=== PATIENT | female | born 1955 | race Caucasian/White ===

== ENCOUNTER 2020-06-27 08:29 | Outpatient (REF) | payer OTHER, SELFPAY ==
[2020-06-27 09:14] LABS: MANUAL DIFF FLAG NO
[2020-06-27 09:19] LABS: Basophils Percent Auto 0.3 % (0-2); Eosinophils Absolute Auto 0.2 X10*3/uL (0.0-0.4); Eosinophils Percent Auto 2.9 % (0-4); Hematocrit 45.2 % (37-47); Hemoglobin 14.8 g/dl (12.0-16.0); Imm Gran Abs Auto 0.01 X10*3/uL (0.00-0.03); Imm Gran Pct Auto 0.2 % (0.0-0.4); Lymphocytes Absolute Auto 1.1 X10*3/uL (1.2-4.9); Lymphocytes Percent Auto 18.9 % (20-40); Mean Corpuscular HGB Conc 32.7 g/dl (31.0-35.0); Mean Corpuscular Volume 97.6 fL (80-98); Mean Platelet Volume 11.4 fL (9.4-12.3); Monocytes Absolute Auto 0.5 X10*3/uL (0.1-1.2); Monocytes Percent Auto 7.9 % (2-11); Neutrophils Absolute Auto 4.1 X10*3/uL (2.0-8.3); Neutrophils Percent Auto 69.8 % (45-73); Platelet Count 214 X10*3/uL (160-400); Red Blood Count 4.63 X10*6/uL (4.20-5.50); Red Cell Distribution Width 11.8 % (11.0-16.0); White Blood Count 5.8 X10*3/uL (4.8-10.8)
[2020-06-27 09:47] LABS: Alanine Aminotransferase 23 U/L (0-31); Albumin Level 4.2 g/dL (3.5-5.0); Alkaline Phosphatase 94 U/L (39-117); Anion Gap 13 (12-20); Aspartate Amino Transferase 25 U/L (5-31); Bilirubin Total 1.1 mg/dL (0.0-1.0); Blood Urea Nitrogen 13 mg/dL (9-16); Calcium 9.2 mg/dL (8.4-10.2); Carbon Dioxide 32 mmol/L (22-29); Chloride 99 mmol/L (96-108); Cholesterol 177 mg/dL; Estimated Glomerular Filt Rate > 60; Glucose Fasting 101 mg/dL (60-99); HDL Cholesterol 54 mg/dL; LDL Cholesterol Calculated 96 mg/dl; Potassium 4.7 mmol/l (3.3-5.1); Sodium 139 mmol/L (135-145); Total Protein 6.9 g/dL (6.5-8.0); Triglycerides 138 mg/dL
[2020-06-27 13:25] LABS: Free T4 (Free Thyroxine) 1.12 ng/dL (0.71-1.85); Thyroid Stimulating Hormone 1.79 uIU/mL (0.32-4.0)
== END 2020-06-27 08:30 | disposition home or self-care (01) ==
LOC: HO.LAB 08:29
PROVIDERS: PCP Internal Medicine; Visit Provider Internal Medicine
DX: Z00.00 Encounter for general adult medical examination without abnormal findings (principal); E03.9 Hypothyroidism, unspecified
CPT/HCPCS: 36415; 80053; 80061; 84439; 84443; 85025

== ENCOUNTER 2021-01-05 07:53 | Outpatient (REF) | payer MEDICARE, SELFPAY ==
--- NOTE | ~2021-01-05 | MM_ITS ---
EXAMINATION: MM SCREENING DIGITAL BREAST TOMOSYNTHESIS, BILATERAL CLINICAL INFORMATION: Screening. Asymptomatic. The lifetime risk of breast cancer based on the Tyrer-Cuzick Model is 6.9%. COMPARISON: Mammography: October 15, 2018 and studies dating back to October 19, 2012 TECHNIQUE: Digital breast tomosynthesis is performed in both the craniocaudal and mediolateral oblique views along with computer-aided detection (CAD). Synthesized 2D images are generated from the tomosynthesis. FINDINGS: There are scattered areas of fibroglandular density (ACR BI-RADS breast composition Category b). There are no significant masses, abnormal calcifications, or other abnormalities. MM/MM tomosynthesis screening BI IMPRESSION: There are no significant changes from prior study. ASSESSMENT: BI-RADS 1: Negative RECOMMENDATION: Routine annual mammography screening. This patient's information was entered into a reminder system with a target due date for their next mammogram.
== END 2021-01-05 07:54 | disposition home or self-care (01) ==
LOC: HO.MAMMO 07:53
PROVIDERS: PCP Internal Medicine; Visit Provider Internal Medicine
DX: Z12.31 Encounter for screening mammogram for malignant neoplasm of breast (principal)
CPT/HCPCS: 77063; 77067

== ENCOUNTER 2021-12-20 06:36 | Outpatient (REF) | payer MEDICARE, SELFPAY ==
[2021-12-20 07:01] LABS: MANUAL DIFF FLAG NO
[2021-12-20 07:33] LABS: Basophils Percent Auto 0.5 % (0-2); Eosinophils Absolute Auto 0.2 X10*3/uL (0.0-0.4); Eosinophils Percent Auto 3.8 % (0-4); Hematocrit 44.8 % (37.0-47.0); Imm Gran Abs Auto 0.01 X10*3/uL (0.00-0.03); Imm Gran Pct Auto 0.2 % (0.0-0.4); Lymphocytes Absolute Auto 1.4 X10*3/uL (1.2-4.9); Lymphocytes Percent Auto 23.1 % (20-40); Mean Corpuscular HGB Conc 33.5 g/dl (31.0-35.0); Mean Corpuscular Hemoglobin 32.8 pg (27.0-33.0); Mean Corpuscular Volume 97.8 fL (80.0-98.0); Mean Platelet Volume 11.1 fL (9.4-12.3); Monocytes Absolute Auto 0.5 X10*3/uL (0.1-1.2); Monocytes Percent Auto 8.9 % (2-11); Neutrophils Absolute Auto 3.7 x10*3/uL (2.0-8.3); Neutrophils Percent Auto 63.5 % (45-73); Platelet Count 217 X10*3/uL (160-400); Red Blood Count 4.58 X10*6/uL (4.20-5.50); Red Cell Distribution Width 11.3 % (11.0-16.0); White Blood Count 5.9 X10*3/uL (4.8-10.8)
[2021-12-20 08:18] LABS: Alanine Aminotransferase 45 U/L (0-31); Albumin Level 4.2 g/dL (3.5-5.0); Alkaline Phosphatase 81 U/L (39-117); Anion Gap 13 (12-20); Aspartate Amino Transferase 32 U/L (5-31); Bilirubin Total 0.9 mg/dL (0.0-1.0); Blood Urea Nitrogen 14 mg/dL (9-16); Calcium 9.9 mg/dL (8.4-10.2); Carbon Dioxide 31 mmol/L (22-29); Chloride 103 mmol/L (96-108); Cholesterol 167 mg/dL; Estimated Glomerular Filt Rate > 60; Glucose Random 95 mg/dL (60-115); HDL Cholesterol 46 mg/dL; LDL Cholesterol Calculated 83 mg/dl; Sodium 142 mmol/L (135-145); Total Protein 6.9 g/dL (6.5-8.0); Triglycerides 192 mg/dL
[2021-12-20 08:32] LABS: Thyroid Stimulating Hormone 1.35 uIU/mL (0.32-4.0)
== END 2021-12-20 06:37 | disposition home or self-care (01) ==
LOC: HO.LAB 06:36
PROVIDERS: PCP Internal Medicine; Visit Provider Internal Medicine
DX: I10 Essential (primary) hypertension (principal); E03.9 Hypothyroidism, unspecified
CPT/HCPCS: 36415; 80053; 80061; 84439; 84443; 85025

== ENCOUNTER 2022-05-27 09:13 | Day surgery (SDC) | payer MEDICARE, SELFPAY ==
[2022-05-21 15:51] VITALS: BMI 30.4
--- NOTE | 2022-05-23 10:30 | HO.ANESPROP2 ---
Documented by User: Jelena Gold NP 05/23/22 10:31 HPI - Anesthesia Eval Consult details Narrative: 66yo F for Colonoscopy PMFSH Past Medical History Medical History HTN (hypertension) Hypothyroid Surgical History Surgical History H/O colonoscopy History of bunionectomy Hx of cholecystectomy Hx of hysterectomy Social History Social History Household Members: Spouse Patient Tobacco Use Status: Former Tobacco user Quit Date: 25 yrs ago Use of substances other than those prescribed or required for medical reasons: No Are you DNR?: No Advance Directives: No Advance Directives Information Provided: Yes Patient : No Meds Allergies Allergy/AdvReac Type Severity Reaction Status Date / Time codeine [Codeine] Allergy Intermediate HIVES/N/V Verified 05/27/22 09:56 Iodinated Contrast Media Allergy Unknown Unknown Verified 05/27/22 09:56 [IV Contrast Dye] Home Medications Medication Instructions Recorded Confirmed Last Taken Type ibuprofen 200 mg tablet (Advil) 200 mg PO Q8H PRN Pain 05/21/22 05/27/22 05/20/22 History levothyroxine 75 mcg tablet 75 mcg PO DAILY 05/21/22 05/27/22 Unknown History losartan 50 mg tablet 50 mg PO DAILY 05/21/22 05/27/22 Unknown History Exam Exam Date and Time: May 23, 2022 1030 Height,Weight and Vital Signs: Height 5 ft 5 in Weight 83.007 kg Pertinent Lab Results Pertinent Lab Results: Laboratory Tests 12/20/21 12/20/21 06:45 06:45 WBC 5.9 Hgb 15.0 Hct 44.8 Plt Count 217 Sodium 142 Potassium 5.0 Chloride 103 Carbon Dioxide 31 H BUN 14 Creatinine 0.76 Assessment and Plan Assessment Anesthesia Assessment: Chart Reviewed Documented by User: Joyce Gaspar MD 05/27/22 11:34 PMFSH Past Medical History Medical History HTN (hypertension) Hypothyroid Functional capacity: independent ambulation Patient : No Family History Family history of problems with anesthesia: No Surgical History Surgical History H/O colonoscopy History of bunionectomy Hx of cholecystectomy Hx of hysterectomy History of Problems with Anesthesia: No Social History Social History Household Members: Spouse Patient Tobacco Use Status: Former Tobacco user Quit Date: 25 yrs ago Use of substances other than those prescribed or required for medical reasons: No Are you DNR?: No Advance Directives: No Advance Directives Information Provided: Yes Patient : No Meds Allergies Allergy/AdvReac Type Severity Reaction Status Date / Time codeine [Codeine] Allergy Intermediate HIVES/N/V Verified 05/27/22 09:56 Iodinated Contrast Media Allergy Unknown Unknown Verified 05/27/22 09:56 [IV Contrast Dye] Home Medications Medication Instructions Recorded Confirmed Last Taken Type ibuprofen 200 mg tablet (Advil) 200 mg PO Q8H PRN Pain 05/21/22 05/27/22 05/20/22 History levothyroxine 75 mcg tablet 75 mcg PO DAILY 05/21/22 05/27/22 Unknown History losartan 50 mg tablet 50 mg PO DAILY 05/21/22 05/27/22 Unknown History Assessment and Plan Final Anesthetic Review Family History of Problems with Anesthesia: No History of Problems with Anesthesia: No ASA Class: II Final Preanesthetic Review: No Changes in Pt Med Stat, Meds/Allgs Chart Reviewed, Consent Obtained/Reviewed and Anes Risks/Benef Reviewed Patient Risk: Low Procedure Risk: Low Anesthetic Plan Anesthetic Plan: MAC: Disposition: Standard PACU
[2022-05-27 09:56] VITALS: BP 160/93; PULSE 79; RESP 16; TEMP 36.9; O2SAT 96
[2022-05-27] MEDS: Lactated Ringers 1,000 ML 100 ML IVCONT (10:10)
--- NOTE | 2022-05-27 10:57 | MHC.SHP ---
Pre-Procedural Eval Section A Date of Service: 05/27/22 The patient is an INPATIENT: No Changes since office visit: No Cold of Flu in the past 2 weeks, No New Medical Problems, No Changes in Medication and No Patient answered all questions The History & Physical has been completed within 30 days and I have reviewed it.: Yes Section B Chief Complaint: Encounter for screening for malignant neoplasm of Allergies: Allergies Allergy/AdvReac Type Severity Reaction Status Date / Time codeine [Codeine] Allergy Intermediate HIVES/N/V Verified 05/27/22 09:56 Iodinated Contrast Media Allergy Unknown Unknown Verified 05/27/22 09:56 [IV Contrast Dye] Plan I have reviewed the history and physical and performed a pertinent physical examination on my patient. No changes have occurred unless specified.
--- NOTE | 2022-05-27 11:33 | P.BOP_ITS ---
Brief Operative Note Date of Service: 05/27/22 Pre-op diagnosis: screening Post-op diagnosis: same Surgeon: Angel Nunez Anesthesia: MAC Was an Digital Data Analyst used for this Procedure?: No Estimated blood loss (mL): 2 Pathology: other Condition: stable Disposition: PACU
[2022-05-27 11:38] VITALS: BP 139/83; PULSE 60; RESP 16; TEMP 36.8; O2SAT 97
[2022-05-27 11:54] VITALS: BP 153/83; PULSE 65; RESP 18; TEMP 36.8; O2SAT 96
--- NOTE | 2022-05-27 12:07 | HO.POSTANES ---
Post Anesthesia Evaluation Post Anesthesia Evaluation Vital Signs: Vital Signs Temp Pulse Resp BP Pulse Ox O2 Del Method O2 Flow Rate 05/27/22 11:54 98.2 F 65 18 153/83 H 96 Room Air 05/27/22 11:38 98.2 F 60 16 139/83 97 Nasal Cannula 2 05/27/22 09:56 98.4 F 79 16 160/93 H 96 Room Air Anesthesia: Monitored Mental Status: Awake Pain Control: Satisfactory Nausea/Vomiting: None Hydration: Adequate Anesthesia-Related Issues: No Anes. Related Issues
--- NOTE | 2022-05-27 23:40 | OP_ITS ---
SURGEON: Angel Nunez MD INDICATIONS: Colon cancer screening. PREOPERATIVE DIAGNOSIS: POSTOPERATIVE DIAGNOSIS: PROCEDURE PERFORMED: Colonoscopy to the terminal ileum with snare polypectomy. ESTIMATED BLOOD LOSS: COMPLICATIONS: ANESTHESIA: Monitored anesthesia care. ASSISTANTS: SPECIMENS: DESCRIPTION OF PROCEDURE: The procedure was performed on 05/27/2022. History and physical performed. The risks and benefits of the procedure were explained to the patient and informed consent was obtained. The patient was placed in the left lateral decubitus position. A digital rectal exam was performed and was found to be normal. The Olympus pediatric video colonoscope was introduced into the rectum and advanced to the cecum without difficulty. The cecum was identified by transillumination, palpation, and identification of ileocecal valve. Examination was performed. The scope was removed. She tolerated the procedure well and was taken to recovery in stable condition. FINDINGS: The terminal ileum was briefly examined and appeared normal. The visualized colonic mucosa was normal. The quality of the prep was good. Two polyps were identified. Both measured less than 10 mm were removed with the snare and biopsy forceps. These were located at the right colon at about 70 cm. No other polyps were identified. There was some diverticulosis involving the sigmoid. Retroflexed examination showed large internal hemorrhoids. IMPRESSION: Colon polyps. RECOMMENDATION: Follow up the biopsy results. MD CORI Wharton/NIRU / [id number]
== END 2022-05-27 12:43 | disposition home or self-care (01) ==
PROVIDERS: PCP Internal Medicine; Visit Provider Internal Medicine Gastroenterology
PROC: 0DJD8ZZ Inspection of Lower Intestinal Tract, Via Natural or Artificial Opening Endoscopic (ICD-10-PCS; CPT 45378; principal; 2022-05-27 10:30)
DX: Z12.11 Encounter for screening for malignant neoplasm of colon (principal); D12.2 Benign neoplasm of ascending colon; D12.4 Benign neoplasm of descending colon; K57.30 Diverticulosis of large intestine without perforation or abscess without bleeding; K64.8 Other hemorrhoids; I10 Essential (primary) hypertension; E03.9 Hypothyroidism, unspecified; Z79.1 Long term (current) use of non-steroidal anti-inflammatories (NSAID); Z79.899 Other long term (current) drug therapy; Z90.49 Acquired absence of other specified parts of digestive tract; Z87.891 Personal history of nicotine dependence
CPT/HCPCS: 45385; 45380; 88305

== ENCOUNTER 2023-01-21 16:42 | Outpatient (REF) | payer MEDICARE, SELFPAY ==
--- NOTE | ~2023-01-21 | XR_ITS ---
EXAMINATION: XR HIP, RIGHT CLINICAL INFORMATION: Right hip pain COMPARISON: None available. TECHNIQUE: Two views of the right hip. FINDINGS: The bones are intact.. No fracture. Alignment is anatomic. Hip joint space is maintained. Subchondral sclerosis is seen in the superior-lateral aspect of the acetabulum. Small calcification near the greater trochanter could be related to gluteal tendinosis. XR/XR hip RT min 2V IMPRESSION: Mild degenerative change of the right hip.
[2023-01-21 16:53] LABS: MANUAL DIFF FLAG NO
[2023-01-21 17:24] LABS: Basophils Percent Auto 0.4 % (0-2); Eosinophils Absolute Auto 0.2 X10*3/uL (0.0-0.4); Eosinophils Percent Auto 2.2 % (0-4); Hematocrit 45.7 % (37.0-47.0); Hemoglobin 15.1 g/dl (12.0-16.0); Imm Gran Abs Auto 0.03 X10*3/uL (0.00-0.03); Imm Gran Pct Auto 0.3 % (0.0-0.4); Lymphocytes Absolute Auto 1.2 X10*3/uL (1.2-4.9); Mean Corpuscular Hemoglobin 32.5 pg (27.0-33.0); Mean Corpuscular Volume 98.5 fL (80.0-98.0); Mean Platelet Volume 11.1 fL (9.4-12.3); Monocytes Absolute Auto 0.9 X10*3/uL (0.1-1.2); Monocytes Percent Auto 9.6 % (2-11); Neutrophils Absolute Auto 6.9 x10*3/uL (2.0-8.3); Neutrophils Percent Auto 74.5 % (45-73); Platelet Count 235 X10*3/uL (160-400); Red Blood Count 4.64 X10*6/uL (4.20-5.50); Red Cell Distribution Width 11.9 % (11.0-16.0); White Blood Count 9.2 X10*3/uL (4.8-10.8)
[2023-01-21 18:00] LABS: Alanine Aminotransferase 40 U/L (0-31); Albumin Level 4.3 g/dL (3.5-5.0); Alkaline Phosphatase 95 U/L (39-117); Anion Gap 12 (12-20); Aspartate Amino Transferase 26 U/L (5-31); Bilirubin Total 0.9 mg/dL (0.0-1.0); Blood Urea Nitrogen 23 mg/dL (9-16); Calcium 9.4 mg/dL (8.4-10.2); Carbon Dioxide 32 mmol/L (22-29); Chloride 99 mmol/L (96-108); Estimated Glomerular Filt Rate > 60; Glucose Random 91 mg/dL (60-115); Potassium 4.3 mmol/L (3.3-5.1); Sodium 139 mmol/L (135-145); Total Protein 7.2 g/dL (6.5-8.0)
[2023-01-21 18:16] LABS: Free T4 (Free Thyroxine) 1.07 ng/dL (0.71-1.85); Thyroid Stimulating Hormone 1.63 uIU/mL (0.32-4.0)
== END 2023-01-21 16:43 | disposition home or self-care (01) ==
LOC: HO.LAB 16:42
PROVIDERS: PCP Internal Medicine; Visit Provider Internal Medicine
DX: M25.551 Pain in right hip (principal); I10 Essential (primary) hypertension; E03.9 Hypothyroidism, unspecified
CPT/HCPCS: 36415; 73502; 80053; 84439; 84443; 85025

== ENCOUNTER 2023-02-23 09:34 | Outpatient (AMB) | payer MEDICARE, SELFPAY ==
[2023-02-23 10:17] VITALS: BMI 30.8
--- NOTE | 2023-02-23 10:17 | MHC.OFFVIS ---
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 Patient reports that she has had ongoing hip pain for about 2 months now, denies injury. Pain increases with walking and radiates down the leg. History of sciatic flair ups. Tried Advil with no relief, tried prednisone with relief . 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 She complains of pain in the lateral aspect of her hip, which is worse with walking and radiates down her leg. She says she walks with a limp and this caused her LBP. She says her pain has been improving overall, though she continues to have pain at night when lying on her side. She is able to walk normally and denies any pain with stairs. She has a Hx of Sciatica and denies any numbness, tingling, or burning in her leg. She says she has not been able to Golf recently due to her pain. [facility] Medical History HTN (hypertension) Hypothyroid Surgical History H/O colonoscopy History of bunionectomy Hx of cholecystectomy Hx of hysterectomy Social History Household Members: Spouse Patient Tobacco Use Status: Former Tobacco user Quit Date: 25 yrs ago Review of Systems Const All systems reviewed & are unremarkable except as noted in HPI and below Physical Exam Vital Signs: BMI result Body Mass Index 30.8 Const General: no acute distress, alert and awake Orientation/consciousness: patient oriented x3 HEENT Head: Yes normocephalic and Yes atraumatic Eyes EOM: EOMs intact bilaterally Resp Effort & Inspection: normal respiratory effort and able to speak in complete sentences Cardio Jugular venous distension: no JVD Skin General skin exam: turgor normal Rashes: no rashes Neuro General: patient oriented x3 Extrem Other: Right Hip: TTP bursa No groin pain with hip ROM Full ROM Psych Appearance: grossly normal Affect: normal affect Attitude: cooperative Office Procedures Joint Injection/Drain Joint Injection/Drain Details: Injected 1 mL of Decadron and 3 mL 1% lidocaine and 3 mL of 0.25% Marcaine. Site was prepped using aseptic technique. Patient tolerated the procedure well. Primary Site: other (Right greater troch bursa) Coding 22013 - Large joint Procedure code (CPT) selection complete Results Reviewed Results Reviewed: 02/23/23 10:32 BUPivacaine MPF 0.25 % [Sensorcaine-MPF 0.25% 10 ML] 10 ml .ROUTE .STK-MED ONE Lidocaine HCl 2 % MPF [Xylocaine 2 % MPF] 5 ml .ROUTE .STK-MED ONE dexAMETHasone sod phosphate [Decadron] 4 mg .ROUTE .STK-MED ONE I personally reviewed relevant radiographs. Mild degenerative change of the right hip. Assessment & Plan Assessment & Plan (1) Bursitis of right hip: Code(s): M70.71 - Other bursitis of hip, right hip Plan: This is a 67 year old woman with right hip bursitis. She has improving pain with weight-bearing and when lying on her side at night. She feels limited in her ADLs and enjoyable daily activities, such as Golfing. I discussed her diagnosis and treatment options. I recommend she focus on quad, core, and gluteal strengthening and NSAIDs. I injected her right hip bursa today, which she tolerated well. She would like to exercise at home and consider PT, she can contact the clinic for a referral. She will follow-up prn. (2) Lumbar radiculopathy, right: Code(s): M54.16 - Radiculopathy, lumbar region Plan: LBP that radiates down the right leg. Denies numbness and tingling. Plan Scribed for Terrence Tarango MD by Ankit Lomax, medical technologist clinical, on 02/23/23 at 10:30 AM, EST. Coding Level of Care Code New Pt Level 3 (62095) Diagnoses Bursitis of right hip M70.71 Lumbar radiculopathy, right M54.16 CPT Codes Coding - 18217 Large joint: 96052 - Large joint ([id number])
== END 2023-02-23 10:41 | disposition home or self-care (01) ==
LOC: HO.HOS 10:16
PROVIDERS: PCP Internal Medicine; Visit Provider Orthopaedic Surgery
DX: M70.71 Other bursitis of hip, right hip (principal); M54.16 Radiculopathy, lumbar region
CPT/HCPCS: 20610; 99203

== ENCOUNTER → 2023-02-23 10:16 | Outpatient (BNVA) | payer MEDICARE, SELFPAY | PROVIDERS: PCP Internal Medicine; Visit Provider Orthopaedic Surgery | DX: M70.71 Other bursitis of hip, right hip (principal); M54.16 Radiculopathy, lumbar region | CPT/HCPCS: 20610; 99202; J1100 ==

== ENCOUNTER 2023-11-25 15:10 | Outpatient (REF) | payer MEDICARE, SELFPAY ==
--- NOTE | ~2023-11-25 | XR_ITS ---
EXAMINATION: Right shoulder and right humerus x-ray CLINICAL INFORMATION: Fall 2 weeks ago COMPARISON: Right shoulder x-ray September 2018 TECHNIQUE: 4 views of the right shoulder. 2 views of the right humerus FINDINGS: Right shoulder: There is a comminuted minimally displaced fracture of the right greater tuberosity. No other fracture seen. Glenohumeral and acromioclavicular joints are normal. Soft tissues are normal. Right humerus: Comminuted right greater tuberosity fracture described above. No other humeral fracture seen. Right shoulder and elbow joints are normal. Soft tissues are normal. XR/XR shoulder RT min 2V IMPRESSION: Comminuted minimally displaced fracture of the right greater tuberosity. Findings will be communicated by the [place] workflow construction or leak gang laborer.
--- NOTE | ~2023-11-25 | XR_ITS ---
EXAMINATION: Right shoulder and right humerus x-ray CLINICAL INFORMATION: Fall 2 weeks ago COMPARISON: Right shoulder x-ray September 2018 TECHNIQUE: 4 views of the right shoulder. 2 views of the right humerus FINDINGS: Right shoulder: There is a comminuted minimally displaced fracture of the right greater tuberosity. No other fracture seen. Glenohumeral and acromioclavicular joints are normal. Soft tissues are normal. Right humerus: Comminuted right greater tuberosity fracture described above. No other humeral fracture seen. Right shoulder and elbow joints are normal. Soft tissues are normal. XR/XR humerus RT IMPRESSION: Comminuted minimally displaced fracture of the right greater tuberosity. Findings will be communicated by the [place] workflow molecular physicist.
== END 2023-11-25 15:11 | disposition home or self-care (01) ==
LOC: HO.XRAY 15:10
PROVIDERS: PCP Internal Medicine; Visit Provider Internal Medicine
DX: M25.511 Pain in right shoulder (principal); M79.601 Pain in right arm; Z91.81 History of falling
CPT/HCPCS: 73030; 73060

== ENCOUNTER 2023-12-04 13:28 | Outpatient (AMB) | payer MEDICARE, SELFPAY ==
--- NOTE | 2023-12-04 13:46 | A.OFFVIS_ITS ---
Vital Signs 12/04/23 13:47 Height 5 ft 5 in Weight 185 lb BMI 30.8 Intake Visit Reasons: FC- RT greater tuberosity fx Intake Note: Rose is a 68 year old right hand female who presents today for a fracture care visit for her right arm . She reports that she took a fall about a month ago while she was in [place]. She explains that it all happened so fast she not exactly sure what happened. She thought that her symptoms would go away but they were persistent. She was seen with her PCP who gave her a sling, she has been wearing this for about a week now. She wears the sling at all time except for sleep and hygiene. She has occasional numbness in the fingers, pain radiates down to the hand occasionally. Taking Ibuprofen for her pain. Allergies codeine [Codeine] Allergy (Intermediate, Verified 02/23/23 10:19) HIVES/N/V Iodinated Contrast Media [IV Contrast Dye] Allergy (Unknown, Verified 02/23/23 10:) Unknown HPI HPI FC- RT greater tuberosity fx: Details: 68-year-old right hand dominant female who presents in the office today for an evaluation of right shoulder pain. Patient was referred to the office by Dr. Hurst on 11/25/2023. Patient reported to the provider that she fell 2 weeks prior at [facility] in [place]. X-rays were obtained. While in the office today the patient states the fall happened so fast, she is not sure what occurred. She thought her symptoms would go away, but they have persisted. She was seen by her PCP who put her in a sling. She has been wearing this for a week and has been wearing it at all times except while sleeping and for hygiene purposes. She reports occasional numbness in the fingers with pain radiating down to the hand from the right shoulder intermittently. Confirms taking Ibuprofen for her pain. Patient reports the injury occurred a month ago. She states her sister?s partner has been working on gentle ROM with her so she did not get a frozen shoulder. COUNTS INCLUDE 234 BEDS AT THE [facility] Medical History Hypothyroid HTN (hypertension) Surgical History H/O colonoscopy Hx of cholecystectomy History of bunionectomy Hx of hysterectomy Social History (Updated 12/04/23 @ 13:53 by Anneliese Sommer [facility]) Household Members: Spouse Patient Tobacco Use Status: Former Tobacco user Quit Date: 25 yrs ago Current occupational status: retired Review of Systems Const All systems reviewed & are unremarkable except as noted in HPI and below Physical Exam Vital Signs: BMI result Body Mass Index 30.8 Const General: cooperative and no acute distress Orientation/consciousness: patient oriented x3 Resp Effort & Inspection: normal respiratory effort and able to speak in complete sentences Cardio Peripheral pulses: Peripheral pulses 2+ throughout Skin General skin exam: no rashes or lesions noted Neuro General: patient oriented x3 Extrem Other: Right shoulder: Forward flexion lacking 30 degrees. Abduction to 45 degrees. Able to reach T-12. External rotation to 45 degrees. NVI. Office Procedures Fracture Care Fracture Billing Code: Fracture Billing Code Assessment & Plan Assessment & Plan (1) Fracture of greater tuberosity of right humerus: Code(s): S42.251A - Displaced fracture of greater tuberosity of right humerus, initial encounter for closed fracture Category: Medical Qualifiers: Encounter type: initial encounter Fracture alignment: nondisplaced Fracture type: closed Qualified Code(s): S42.254A - Nondisplaced fracture of greater tuberosity of right humerus, initial encounter for closed fracture Plan Ms. Toney is a 68-year-old right hand dominant female who presents in the office today for an evaluation of right shoulder pain. Patient was referred to the office by Dr. Hurst on 11/25/2023. Patient reported to the provider that she fell 2 weeks prior at [facility] in [place]. X-rays were obtained. While in the office today the patient states the fall happened so fast, she is not sure what occurred. She thought her symptoms would go away, but they have persisted. She was seen by her PCP who put her in a sling. She has been wearing this for a week and has been wearing it at all times except while sleeping and for hygiene purposes. She reports occasional numbness in the fingers with pain radiating down to the hand from the right shoulder intermittently. Confirms taking Ibuprofen for her pain. Patient reports the injury occurred a month ago. She states her sister?s partner has been working on gentle ROM with her, so she did not get a frozen shoulder. Discussed the treatment plan with the patient in the office today. We will treat this conservatively. A referral to physical therapy was placed in the office today to begin to work on gentle ROM. At this time the sling is to be worn for comfort. I recommend wearing the sling out of the house for protection but come out of it when at home. I do not recommend driving at this time due to weakness and mobility issues with the right shoulder. We will discuss this again at your next appointment. Follow up will be in 4 weeks with repeat x-rays, or sooner if needed. X-rays of the right shoulder, obtained on 11/25/2023, revealed: Comminuted minimally displaced fracture of the right greater tuberosity. Orders: Orders PT Evaluation and Treatment Today S42.254A - Nondisplaced fracture of greater tuberosity of right humerus, initial encounter for closed fracture Patient Instructions: Scribed by Ayaka Ron medical device assembler, for Jessica Clemente PA-C on 12/04/2023 at 1:45 pm, EST.
[2023-12-04 13:47] VITALS: BMI 30.8
== END 2023-12-04 14:09 | disposition home or self-care (01) ==
PROVIDERS: PCP Internal Medicine; Visit Provider Physician Assistant
DX: S42.254A Nondisplaced fracture of greater tuberosity of right humerus, initial encounter for closed fracture (principal)
CPT/HCPCS: 99213

== ENCOUNTER → 2023-12-04 13:28 | Outpatient (BNVA) | payer MEDICARE, SELFPAY | PROVIDERS: PCP Internal Medicine; Visit Provider Physician Assistant | DX: S42.251A Displaced fracture of greater tuberosity of right humerus, initial encounter for closed fracture (principal) | CPT/HCPCS: 99212 ==

== ENCOUNTER 2023-12-31 08:46 | Outpatient (REF) | payer MEDICARE, SELFPAY ==
--- NOTE | ~2023-12-31 | XR_ITS ---
EXAMINATION: XR SHOULDER, RIGHT CLINICAL INFORMATION: Pain in right shoulder COMPARISON: X-rays of the right shoulder and humerus November 2023 TECHNIQUE: AP external rotation, Grashey, scapular Y, and axillary views of the right shoulder. FINDINGS: Mildly displaced greater tuberosity fracture is redemonstrated with unchanged alignment. Fracture slightly less conspicuous suggestive of interval partial fracture healing. Acromial clavicular joint normal. Surrounding bone and soft tissues unremarkable. XR/XR shoulder RT min 2V IMPRESSION: Healing mildly displaced greater tuberosity fracture.
== END 2023-12-31 08:47 | disposition home or self-care (01) ==
LOC: HO.HOSX 08:46
PROVIDERS: Visit Provider Physician Assistant
DX: S42.254D Nondisplaced fracture of greater tuberosity of right humerus, subsequent encounter for fracture with routine healing (principal)
CPT/HCPCS: 73030; 99212

== ENCOUNTER 2023-12-31 09:00 | Outpatient (AMB) | payer MEDICARE, SELFPAY ==
--- NOTE | 2023-12-31 09:07 | MHC.OFFVIS ---
Intake Visit Reasons: O/V RT greater tuberosity fx 11/01/23 Intake Note: Rose is a 68 year old right hand dominant patient who presents today for a follow up of her RT greater tuberosity fx 11/01/23. Patient reports she is still experiencing soreness and stiffness. She expresses that her discomfort is all over her right shoulder. Patient states that applying heat to her shoulder loosens that area when she is performing her home exercises. Allergies codeine [Codeine] Allergy (Intermediate, Verified 12/31/23 09:07) HIVES/N/V Iodinated Contrast Media [IV Contrast Dye] Allergy (Unknown, Verified 12/31/23 09:07) Unknown HPI HPI O/V RT greater tuberosity fx 11/01/23: Details: 68-year-old right hand dominant female who presents in the office today for a follow up of a right humerus greater tuberosity fracture, which occurred on 11/01/2023 status post a fall at the [facility] in [place]. I last saw the patient in the office on 12/04/2023 when she was referred to PT to work on gentle ROM. Encouraged to wear the sling for comfort and out of the house for protection. I did not recommend driving due to right upper extremity weakness. While in the office today the patient reports she is still having soreness and stiffness in the right shoulder. She also reports discomfort throughout. She confirms the use of heat and reports this ?loosens up that area? when she is performing home exercises. [facility] Medical History Hypothyroid HTN (hypertension) Surgical History H/O colonoscopy Hx of cholecystectomy History of bunionectomy Hx of hysterectomy Social History (Updated 12/31/23 @ 09:17 by Nigel Hilario) Household Members: Spouse Alcohol intake: current Alcohol intake frequency: holidays/special occasions only Patient Tobacco Use Status: Former Tobacco user Quit Date: 25 yrs ago Current occupational status: retired Review of Systems Const All systems reviewed & are unremarkable except as noted in HPI and below Physical Exam Const General: cooperative, healthy appearing and no acute distress Resp Effort & Inspection: normal respiratory effort and able to speak in complete sentences Cardio Rate: regular rate Peripheral pulses: Peripheral pulses 2+ throughout GI Palpation (GI): Soft to palpation Skin Lesions: no lesions Rashes: no rashes Extrem Other: Right shoulder: Forward flexion to 80 degrees. Abduction to 60 degrees. Able to reach back pocket. NVI. Assessment & Plan Assessment & Plan (1) Fracture of greater tuberosity of right humerus: Code(s): S42.251A - Displaced fracture of greater tuberosity of right humerus, initial encounter for closed fracture Category: Medical Qualifiers: Encounter type: initial encounter Fracture alignment: nondisplaced Fracture type: closed Qualified Code(s): S42.254A - Nondisplaced fracture of greater tuberosity of right humerus, initial encounter for closed fracture Plan Ms. Toney is a 68-year-old right hand dominant female who presents in the office today for a follow up of a right humerus greater tuberosity fracture, which occurred on 11/01/2023 status post a fall at the [facility] in [place]. I last saw the patient in the office on 12/04/2023 when she was referred to PT to work on gentle ROM. Encouraged to wear the sling for comfort and out of the house for protection. I did not recommend driving due to right upper extremity weakness. While in the office today the patient reports she is still having soreness and stiffness in the right shoulder. She also reports discomfort throughout. She confirms the use of heat and reports this ?loosens up that area? when she is performing home exercises. Patient will continue to work with physical therapy to work on ROM. Follow up will be in 6 weeks for a ROM check, or sooner if needed. X-rays of the right shoulder which were obtained while in the office today and were reviewed by me, Jessica Clemente PA-C, revealed routine healing of a right humerus greater tuberosity fracture. Orders: Orders XR shoulder RT min 2V Today M25.519 - Pain in unspecified shoulder Patient Instructions: Scribed by Ayaak Ron medical educator, for Jessica Clemente PA-C on 12/31/2023 at 9:02 am, EST. Coding Level of Care Code Global (63024) Diagnoses Closed nondisplaced fracture of greater tuberosity of right humerus, initial encounter S42.254A Encounter type: initial encounter Fracture alignment: nondisplaced Fracture type: closed
== END 2023-12-31 09:47 | disposition home or self-care (01) ==
PROVIDERS: PCP Internal Medicine; Visit Provider Physician Assistant
DX: S42.254A Nondisplaced fracture of greater tuberosity of right humerus, initial encounter for closed fracture (principal)
CPT/HCPCS: 99213

== ENCOUNTER 2024-02-02 10:11 | Outpatient (REF) | payer MEDICARE, SELFPAY | END 2024-02-02 10:12 | disposition home or self-care (01) | LOC: HO.HOSX 10:11 | PROVIDERS: Visit Provider Physician Assistant | DX: Z13.89 Encounter for screening for other disorder (principal) ==

== ENCOUNTER 2024-02-04 10:00 | Outpatient (RCR) | payer MEDICARE, SELFPAY ==
--- NOTE | 2023-12-22 15:43 | MHC.PT.EP ---
[facility] [place] [facility] [place] [facility] [place] [facility] [address] [phone] F: [phone] F: [phone] F: [phone] F: [phone] Physical Therapy Plan of Care Date of Evaluation: 12/22/23 Date of Surgery: Diagnosis: Comminuted minimally displaced fracture of the right greater tuberosity. Assessment: 68 YO FEMALE PRESENTS W Rt NONDISPLACED HUMERAL FX S/P FALL 11/01/23. SHE IS Rt HAND DOMINANT, RESIDES W HER , AND WAS SEEN IN ORTHO 12/04/23 AND IS REF TO PT FOR GENTLE ROM, SLING FOR COMFORT, NO DRIVING. LUIS DANIEL HAS LIMITED ROM Rt SH, DECR SCAP/ SH COMPLEX STRENGTH, (+) SOFT TISSUE TENSDERNESS, AND (+) POSTURAL COMPENSATION. SHE IS LIMITED W ADLs, DOMINATES W Lt UE AT THIS TIME- SHE IS A GOOD PT CANDIDATE TO ADDRESS THE ABOVE AND GUIDE HER IN HEALING SHE ENJOYS GOLF AND BEING ACTIVE. Frequency and Duration: The patient will be seen 2x WK x 10 WKS Short Term Goals: *DECR Rt SH SWELLING AND PAIN TO 2-3/10 *GRAD INCR PROM->AAROM Rt SH WHILE PROTECTING FRACTURE SITE *ACTIVATE SCAP MM *INITIATE HEP Personal Care Attendant Goals: INDEP W HEP AND SELF-SX MGMT TECHN Pt GRAD INCR ADL/ FUNCT MOB VIKI EVIDENT W IMPROVED SPADI (106/130 AT EVAL) *Pt ACHIEVE WFL FUNCTIONAL STRENGTH Rt SH GIRDLE Treatment Plan: Modalities to reduce pain, spasms and effusion. Manual therapy to restore motion and function. Therapeutic exercise to improve strength and flexibility. Neuromuscular re-education for posture and balance. Therapeutic activities to return to functional activities of daily living. Electronically signed by: JESSICA HUGGINS,PT Please sign and return to therapist. Thank you for your referral.
--- NOTE | 2024-03-25 12:00 | MHC.PT.DC ---
[facility] [place] Office [place] Office [place] Office [address] Carito Bernabe [address] [facility] [phone] F: [phone] F: [phone] F: [phone] F: [phone] Physical Therapy Discharge Report Diagnosis: Comminuted minimally displaced fracture of the right greater tuberosity. Date of Surgery: DOI 10/31 Date of Evaluation: 12/22/23 Date of Discharge: 03/25/24 Treatments to Date: 9 Cancellations to Date: 4 No Shows to Date: 0 Discharge Status: Improved Function Independent with HEP Patient Elected to Stop Discharge Summary: Luis Daniel was progressing in PT, at her last attended pt appt, she demonstrated increased flexion in supine to 140*. LUIS DANIEL HAS A THOROUGH, PROGRESSIVE HEP TO ADDRESS POST RC/ SCAP STRENGTH . A FORMAL REASSESSMENT WAS NOT PERF DUE TO Pt CANC LAST FEW APPTS. Electronically signed by: JESSICA HUGGINS,PT Please sign and return to therapist. Thank you for your referral.
== END 2024-03-25 12:00 | disposition home or self-care (01) ==
LOC: HO.PT 10:00
PROVIDERS: PCP Internal Medicine; Visit Provider Physician Assistant
DX: S42.254A Nondisplaced fracture of greater tuberosity of right humerus, initial encounter for closed fracture (principal)
CPT/HCPCS: 97110; 97140; 97162

== ENCOUNTER 2024-02-26 07:52 | Outpatient (REF) | payer MEDICARE, SELFPAY ==
--- NOTE | ~2024-02-26 | XR_ITS ---
EXAMINATION: XR SHOULDER, RIGHT CLINICAL INFORMATION: Shoulder pain. COMPARISON: 12/31/2023. TECHNIQUE: AP external rotation, Grashey, scapular Y, and axillary views of the right shoulder. FINDINGS: Redemonstration of minimally displaced fracture of the greater tuberosity with evidence of continued interval partial fracture healing. Alignment maintained. Acromioclavicular joint preserved. XR/XR shoulder RT min 2V IMPRESSION: Healing fracture of the greater tuberosity.
== END 2024-02-26 07:53 | disposition home or self-care (01) ==
LOC: HO.HOSX 07:52
PROVIDERS: Visit Provider Physician Assistant
DX: S42.254A Nondisplaced fracture of greater tuberosity of right humerus, initial encounter for closed fracture (principal)
CPT/HCPCS: 73030; 99212

== ENCOUNTER 2024-02-26 13:02 | Outpatient (AMB) | payer MEDICARE, SELFPAY ==
--- NOTE | 2024-02-26 13:04 | A.OFFVIS_ITS ---
Intake Visit Reasons: OV - RT greater tuberosity fx 11/01/23 Intake Note: Rose is a 68 year old right hand dominant patient who presents today for a ROM check s/p RT greater tuberosity fx 11/01/23. Patient reports she is doing better. She states that her throbbing pain has improved. Physical therapy has been going well, her ROM has gotten better. Allergies codeine [Codeine] Allergy (Intermediate, Verified 02/26/24 13:04) HIVES/N/V Iodinated Contrast Media [IV Contrast Dye] Allergy (Unknown, Verified 02/26/24 13:04) Unknown HPI HPI OV - RT greater tuberosity fx 11/01/23: Details: 68-year-old right hand dominant female who presents in the office today for a follow up of a right humerus greater tuberosity fracture, which occurred on 11/01/2023 status post a fall at the [facility] in [place]. I last saw the patient in the office on 12/31/2023 when she was encouraged to continue to work with physical therapy on ROM.? ? While in the office today, the patient reports she is doing better, and the throbbing pain has improved. She does report some pain and discomfort along the right shoulder blade. ? ? She confirms attending physical therapy and states it is going well with improvement in her ROM. She reports she is unable to reach behind her back but can reach over her head.? PFSH Medical History Hypothyroid HTN (hypertension) Surgical History H/O colonoscopy Hx of cholecystectomy History of bunionectomy Hx of hysterectomy Social History (Updated 12/31/23 @ 09:17 by Nigel Hilario) Household Members: Spouse Alcohol intake: current Alcohol intake frequency: holidays/special occasions only Patient Tobacco Use Status: Former Tobacco user Current occupational status: retired Review of Systems Const All systems reviewed & are unremarkable except as noted in HPI and below Physical Exam Const General: cooperative, healthy appearing and no acute distress Resp Effort & Inspection: normal respiratory effort and able to speak in complete sentences Cardio Rate: regular rate Peripheral pulses: Peripheral pulses 2+ throughout GI Palpation (GI): Soft to palpation Skin Lesions: no lesions Rashes: no rashes Extrem Other: Right shoulder: Forward flexion and abduction lacking less than 10 degrees. Able to reach back pocket. ER to end range. NVI. Assessment & Plan Assessment & Plan (1) Fracture of greater tuberosity of right humerus: Code(s): S42.251A - Displaced fracture of greater tuberosity of right humerus, initial encounter for closed fracture Category: Medical Qualifiers: Encounter type: initial encounter Fracture alignment: nondisplaced Fracture type: closed Qualified Code(s): S42.254A - Nondisplaced fracture of greater tuberosity of right humerus, initial encounter for closed fracture Plan Ms. Toney is a 68-year-old right hand dominant female who presents in the office today for a follow up of a right humerus greater tuberosity fracture, which occurred on 11/01/2023 status post a fall at the [facility] in [place]. I last saw the patient in the office on 12/31/2023 when she was encouraged to continue to work with physical therapy on ROM.? ? While in the office today, the patient reports she is doing better, and the throbbing pain has improved. She does report some pain and discomfort along the right shoulder blade. ? ? She confirms attending physical therapy and states it is going well with improvement in her ROM. She reports she is unable to reach behind her back but can reach over her head.? ? We discussed the patient's progress and her completion of physical therapy. She is very happy with her progress at this time. Home exercises were demonstrated while in the office today and she was encouraged to continue to work on ROM and strengthening. ?She may return to normal activities as tolerated using pain as her guide. I recommended refraining from golfing, at this time, until she has progressed in her strengthening. The patient understands and agrees with the plan. Follow-up will be PRN, or sooner if needed. ? ? X-rays of the right shoulder which were obtained while in the office today and were reviewed by me, Jessica Clemente PA-C, revealed routine healing of a right humerus greater tuberosity fracture.? Orders: Orders XR shoulder RT min 2V 02/02/24 M25.519 - Pain in unspecified shoulder XR shoulder RT min 2V Today M25.519 - Pain in unspecified shoulder Patient Instructions: Scribed by Ayaka Rodeen, medical donation professional, for Jessica Bryncrispin SANTIAGO on 02/26/2024 at 1:29 pm, EST.? Coding Level of Care Code Est Pt Level 3 (33427) Diagnoses Closed nondisplaced fracture of greater tuberosity of right humerus, initial encounter S42.254A Encounter type: initial encounter Fracture alignment: nondisplaced Fracture type: closed
== END 2024-02-26 13:43 | disposition home or self-care (01) ==
PROVIDERS: PCP Internal Medicine; Visit Provider Physician Assistant
DX: S42.254A Nondisplaced fracture of greater tuberosity of right humerus, initial encounter for closed fracture (principal)
CPT/HCPCS: 99213

== ENCOUNTER 2024-04-26 15:36 | Outpatient (REF) | payer MEDICARE, SELFPAY ==
--- NOTE | ~2024-04-26 | XR_ITS ---
EXAMINATION: XR CHEST CLINICAL INFORMATION: Chest congestion and cough COMPARISON: Chest 10/24/2015 TECHNIQUE: 2 views of the chest were obtained. FINDINGS: No significant abnormality is noted involving the heart, lungs, mediastinum, bony thorax or soft tissues. XR/XR chest 2V IMPRESSION: No evidence for acute disease. Electronically signed by: Kimberley Warner MD 05/19/2024 01:19 PM EDT RP
== END 2024-04-26 15:37 | disposition home or self-care (01) ==
LOC: HO.XRAY 15:36
PROVIDERS: PCP Internal Medicine; Visit Provider Internal Medicine
DX: R05.9 Cough, unspecified (principal); R06.2 Wheezing
CPT/HCPCS: 71046

== ENCOUNTER 2024-04-27 14:07 | Outpatient (REF) | payer MEDICARE, SELFPAY ==
--- NOTE | ~2024-04-27 | MM_ITS ---
EXAMINATION: BONE DENSITOMETRY CLINICAL INDICATION: Asymptomatic menopausal state. COMPARISON: Previous BD dated 10/15/2018 and baseline BD dated 03/01/2006. TECHNIQUE: Using a [employer] DXA System (software version: 13.1) manufactured by [employer], dual-energy x-ray absorptiometry was performed of the lumbar spine and left hip. The images are of good technical quality. Summary results are attached. FINDINGS: LEFT FEMUR, NECK: Current: BMD 1.048 g/cm2, Z-score 1.3, T-score 0.1, normal. Prior: BMD 1.073 g/cm2. Baseline: BMD 1.061 g/cm2. LEFT FEMUR, TOTAL: Current: BMD 1.126 g/cm2, Z-score 1.9, T-score 0.9, normal, 0.8% decrease from previous, 0.4% increase from baseline (<5% change is not significant). Prior: BMD 1.135 g/cm2. Baseline: BMD 1.122 g/cm2. AP SPINE L1-L4: Current: BMD 1.415 g/cm2, Z-score 3.0, T-score 2.0, normal, 0.4% decrease from previous, 3.8% increase from baseline (<5% change is not significant). Prior: BMD 1.421 g/cm2. Baseline: BMD 1.363 g/cm2. IDENTIFIED RISK FACTORS: Menopause, hysterectomy, history of fracture (adult). HISTORY OF FRACTURE: Shoulder. MEDICATIONS: Calcium, vitamin D. MM/XR DEXA axial skeleton IMPRESSION: 1. DIAGNOSIS: Normal bone density based on the lowest T-score value of 0.1 in the femoral neck applying World Health Organization criteria. 2. 10-YEAR FRACTURE RISK PREDICTION, FRAX: According to the guidelines, FRAX calculation should only be performed on patients in the osteopenia bone density category. Therefore, FRAX was not performed on this patient. 3. Treatment Recommendations: NOF guidelines recommend consideration for treatment in postmenopausal women and men age 50 and older presenting with the following: -A hip or vertebral (clinical or morphometric) fracture. -T-score less than or equal to -2.5 at the femoral neck or spine after appropriate evaluation to exclude secondary causes. -Low bone mass at the hip or spine and a 10-year fracture probability by FRAX of greater than or equal to 3% for hip fracture or greater than or equal to 20% for major osteoporotic fracture based on the [place] adapted WHO algorithm. 4. Other Recommendations: All treatment decisions require clinical judgment and consideration of individual patient factors, including patient preferences, comorbidities, previous drug use, risk factors not captured in the FRAX model (e.g. frailty, falls, vitamin D deficiency, increased bone turnover, interval significant decline in bone density) and possible under or overestimation of fracture risk by FRAX. FUTURE SCAN RECOMMENDATION: People with diagnosed cases of osteoporosis or at high risk for fracture should have regular bone mineral density tests. For patients eligible for Medicare, routine testing is allowed once every 2 years. The testing frequency can be increased to one year for patients who have rapidly progressing disease, those who are receiving or discontinuing medical therapy to restore bone mass, or have additional risk factors. Electronically signed by: Miles Henriquez MD 04/29/2024 03:32 PM EDT
--- NOTE | ~2024-04-27 | MM_ITS ---
EXAMINATION: MM SCREENING DIGITAL BREAST TOMOSYNTHESIS, BILATERAL CLINICAL INFORMATION: Screening. Asymptomatic. COMPARISON: Mammography: Comparison is made with available priors TECHNIQUE: Digital breast mammography with tomosynthesis is performed in both the craniocaudal and mediolateral oblique views along with computer-aided detection (CAD). FINDINGS: There are scattered areas of fibroglandular density (ACR BI-RADS breast composition Category b). There are no significant masses, abnormal calcifications, or other abnormalities. MM/MM tomosynthesis screening BI IMPRESSION: No mammographic evidence of malignancy. ASSESSMENT: BI-RADS BI-RADS 1 - Negative RECOMMENDATION: Routine annual mammography screening. 1 year F/U This examination should not preclude the clinical evaluation of a suspicious palpable abnormality. This patient's information was entered into a reminder system with a target due date for their next mammogram. Electronically signed by: Rosi Euceda DO 05/11/2024 10:56 AM EDT
== END 2024-04-27 14:08 | disposition home or self-care (01) ==
LOC: HO.MAMMO 14:07
PROVIDERS: PCP Internal Medicine; Visit Provider Internal Medicine
DX: Z12.31 Encounter for screening mammogram for malignant neoplasm of breast (principal); Z13.820 Encounter for screening for osteoporosis; Z78.0 Asymptomatic menopausal state
CPT/HCPCS: 77063; 77067; 77080

== ENCOUNTER → 2024-04-27 14:15 | Outpatient (BNV) | payer MEDICARE, SELFPAY | PROVIDERS: PCP Internal Medicine; Visit Provider Internal Medicine | DX: Z12.31 Encounter for screening mammogram for malignant neoplasm of breast (principal) | CPT/HCPCS: 77063; 77067 ==

== ENCOUNTER 2025-01-25 08:06 | Outpatient (AMB) | payer MEDICARE, SELFPAY ==
--- NOTE | 2025-01-25 08:07 | A.OFFPC_ITS ---
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: No Accompanied by: Self / Same As Patient Allergies codeine [Codeine] Allergy (Intermediate, Verified 01/25/25 08:07) HIVES/N/V Iodinated Contrast Media [IV Contrast Dye] Allergy (Unknown, Verified 01/25/25 08:07) Unknown Medication List - Last Reconciled 01/25/25 by JIAN Mooney betamethasone dipropionate 0.05% topical clobetasol 0.05% 1 appl topical BID ibuprofen (Advil) 200 mg PO Q8H PRN ketoconazole 2% 1 appl topical levothyroxine 75 mcg PO DAILY losartan 50 mg PO DAILY naproxen 500 mg PO BID PRN HPI HPI Comments History of Present Illness Details 69-year-old female with history of hypot hyroidism, hypertension presents to the office today for management of chronic conditions, evaluation of right hip pain, and to establish care. Hypertension-initially elevated but controlled on recheck 132/82. Compliant with losartan 50 mg nightly. Hypothyroidism-overdue for thyroid labs. Compliant with levothyroxine 75 mcg daily Obesity-golfing for exercise Concerns: Reporting pain on the lateral aspect of the right hip ongoing for about 2 weeks. She reports this started after a golf swing. Describes a constant soreness, currently rated as 7/10 but has been as bad as a 9/10. Occasionally radiates into the right buttock. No sharp stabbing pain. No weakness/paresthesias. She is ambulating well though does have an occasional limp. Reports pain is worse with prolonged sitting but improves with activity. She has been using heat and ice with some improvement. insomnia-longstanding. Reports she falls asleep well but often wakes up in the middle of the night and stays awake for an hours sometimes more. She is uncertain of the reason. She states she has been taking advil pm. Health maintenance: Last mammogram 04/2024, no evidence of malignancy. One year follow-up advised Last colonoscopy-05/2022. Five year recall due to fragments of sessile serrated polyp and tubular adenoma but negative for high-grade dysplasia or malignancy. Dr. Nunez Last DEXA scan- 04/2024. Normal. 5 year follow up ROS: General: No fevers, malaise, unintentional weight loss HEENT: No blurred vision, diplopia. No sore throat, nasal congestion, rhinorrhea, sinus pain, ear pain Cardiovascular: No chest pain, palpitations, or leg edema Respiratory: No shortness of breath, wheezing, cough MSK: see hpi Neuro: No headaches, weakness, paresthesias Skin: No rashes or lesions EXAM: Constitutional - Awake and Alert, No apparent distress Eyes - PERRLA, EOMI Cardiovascular - S1S2, RRR, No edema Respiratory - Normal lung expansion, Normal respiratory effort, No respiratory distress, CTA bilaterally Extremities - no calf tenderness bilaterally, no swelling Musculoskeletal - R hip- no bony abnormality, swelling, erythema.TTP over the greater trochanter. Pain with internal rotation, otherwise full range of motion Skin - Warm/Dry Neurological - Alert & oriented x3, 5/5 strength BLE Psychological - Appropriate affect [facility] Medical History (Updated 01/25/25 @ 09:04 by JIAN Mooney) Lumbar radiculopathy, right Fracture of greater tuberosity of right humerus Bursitis of right hip Hypothyroid HTN (hypertension) Surgical History (Updated 01/25/25 @ 09:04 by JIAN Mooney) H/O colonoscopy (~05/27/22) Hx of cholecystectomy History of bunionectomy Hx of hysterectomy Social History (Updated 12/31/23 @ 09:17 by Nigel Hilario) Household Members: Spouse Alcohol intake: current Alcohol intake frequency: holidays/special occasions only Patient Tobacco Use Status: Former Tobacco user Current occupational status: retired Questionnaire PHQ-9 Over the last 2 weeks, how often have you been bothered by any of the following problems? 1. Little interest or pleasure in doing things: not at all 2. Feeling down, depressed, or hopeless: not at all 3. Trouble falling or staying asleep, or sleeping too much: more than half the days 4. Feeling tired or having little energy: more than half the days 5. Poor appetite or overeating: not at all 6. Feeling bad about yourself - or that you are a failure or have let yourself or your family down: not at all 7. Trouble concentrating on things, such as reading the newspaper or watching television: not at all 8. Moving or speaking so slowly that other people could have noticed. Or the opposite - being so fidgety or restless that you have been moving around a lot more than usual: not at all 9. Thoughts that you would be better off or of hurting yourself in some way: not at all Total score: 4 Source: Developed by Drs. Quentin Akins, Tahmina Gerardo, Kyle Celeste and colleagues, with an educational brittany from [employer]. Thrive Questionnaire Date Thrive assessed: 01/25/25 I am a: Patient What is your living situation today?: I have a steady place to live Within the past 12 months, did the food you bought not last and you didn't have the money to get more?: Never true Within the past 12 months, did you worry whether your food would run out before you got money to buy more?: Never true Do you have trouble paying for medicines?: No Do you have trouble getting transportation to medical appointments?: No Do you have trouble paying your heating and electricity bill?: No Do you have trouble taking care of your child, family member or friend?: No Do you have trouble with day-to-day activities such as bathing, preparing meals, shopping, managing finances, etc.?: No Are you currently unemployed and looking for a job?: No Are you interested in more education?: No Please select the resources that you would like help with: None THRIVE Score: 0 ABDIRIZAK-7 AMB Questionnaire ABDIRIZAK-7 Date ABDIRIZAK - 7 assessed: 01/25/25 Feeling nervous, anxious, or on edge: 0 = Not at all Not being able to stop or control worryin = Not at all Worrying too much about different things: 0 = Not at all Trouble relaxin = Not at all Being so restless that it is hard to sit still: 0 = Not at all Becoming easily annoyed or irritable: 0 = Not at all Feeling afraid as if something awful might happen: 0 = Not at all Total ABDIRIZAK-7 score (0-4 normal; 5-9 mild; 10-14 moderate; 15-21 severe): 0 Source: Developed by Drs. Quentin Akins, Tahmina Gerardo, Kyle Celeste and colleagues, with an educational brittany from [employer]. Physical exam (Primary Care) Vital Signs: Last Vital Signs Temp 97.8 F 01/25/25 08:13 Pulse 73 01/25/25 08:13 Resp 16 01/25/25 08:13 BP 132/82 01/25/25 08:33 Pulse Ox 95 01/25/25 08:13 Oxygen Delivery Method Room Air 01/25/25 08:13 BMI result Body Mass Index 32.3 Tobacco/Smoking Status: Tobacco use Status Patient Tobacco Use Status Former Tobacco user 01/25/25 08:08 Coding Level of Care Code New Pt Level 4 (21688) Complex EM visit Add On G2211 Diagnoses Trochanteric bursitis, right hip M70.61 Hypothyroid E03.9 HTN (hypertension) I10 Insomnia G47.00 Assessment & Plan Assessment & Plan (1) Trochanteric bursitis, right hip: Code(s): M70.61 - Trochanteric bursitis, right hip Category: Medical Plan: X-ray of the right hip ordered. Not interested in physical therapy at this time. She is given exercises to perform at home. Naproxen 500 mg twice daily, heat/ice and topical analgesics. Contact the office if no improvement (2) Hypothyroid: Code(s): E03.9 - Hypothyroidism, unspecified Category: Medical Plan: TSH with reflex free T4 ordered. Continue levothyroxine (3) HTN (hypertension): Code(s): I10 - Essential (primary) hypertension Category: Medical Plan: Controlled. Continue losartan (4) Insomnia: Code(s): G47.00 - Insomnia, unspecified Category: Medical Plan: Trial trazodone. Counseled on dosing and side effects. Plan Follow-up in the office in 6 months. Labs to be completed following visit as well as several days prior to upcoming visit. X-ray of the right hip is ordered Orders: Orders Complete Blood Count Auto Diff Today E03.9 - Hypothyroidism, unspecified, I10 - Essential (primary) hypertension, M70.71 - Other bursitis of hip, right hip Liver Panel Today R79.89 - Other specified abnormal findings of blood chemistry TSH reflex Free T4 6 Months E03.9 - Hypothyroidism, unspecified, I10 - Essential (primary) hypertension Basic Metabolic Panel Today E03.9 - Hypothyroidism, unspecified, I10 - Essential (primary) hypertension, M70.71 - Other bursitis of hip, right hip Lipid Panel Today E03.9 - Hypothyroidism, unspecified, I10 - Essential (primary) hypertension, M70.71 - Other bursitis of hip, right hip Hemoglobin A1c Today E03.9 - Hypothyroidism, unspecified, I10 - Essential (primary) hypertension, M70.71 - Other bursitis of hip, right hip TSH reflex Free T4 Today E03.9 - Hypothyroidism, unspecified, I10 - Essential (primary) hypertension, M70.71 - Other bursitis of hip, right hip XR hip RT w PEL1V Today M25.551 - Pain in right hip, M70.71 - Other bursitis of hip, right hip Basic Metabolic Panel 6 Months E03.9 - Hypothyroidism, unspecified, I10 - Essential (primary) hypertension Lipid Panel 6 Months E03.9 - Hypothyroidism, unspecified, I10 - Essential (primary) hypertension Medications: New naproxen 500 mg PO BID PRN 60 tabs 1RF pain trazodone 25 - 50 mg (0.5 - 1 x 50 mg) PO BEDTIME PRN 90 tabs 1RF sleep
--- OUTSIDE RECORDS SUMMARY | 2025-01-25 08:10 | XMS_ITS | Patient Health Record ---
Author Organization [facility] Address [address] [place] [address] Care Team Providers Care Physician Surgeon Name Role Phone Bin Hurst MD Primary Care Provider Angel Lakhani Jr Unavailable Allergies No Known Allergies Reason For Referral No Information Medications Medication SIG (Take, Route, Frequency, Duration) Notes Start Date End Date Status MiraLax (colon prep) 17 GM/SCOOP mixed with Gatorade or Crystal Light Orally begin at 5:00 p.m. the day before the procedure for 1 day 05/05/2022 Active Levothyroxine Sodium 75 MCG 1 tablet in the morning on an empty stomach Orally Once a day for 30 day(s) Active Losartan Potassium 50 MG 1 tablet Orally Once a day for 30 day(s) Active Advil 200 MG 1 tablet with food o r milk as needed Orally Three times a day Active Immunizations Vaccine Route Administration Date Status Comme nts Influenza Unknown 07/02/2021 Administered Social History Tobacco Use: Social History Observation Description Date Details (start date - stop date) Never Smoker NA - NA Tobacco Use/Smoking Question Answer Notes Patient is a nonsmoker Alcohol Screen Question Answer Notes Did you have a drink contain ing alcohol in the past year? Yes How often did you have a dri nk containing alcohol in the past year? 4 or more times a week (4 points) How many drinks did you have on a typical day when you were drinking in the past year? 1 or 2 drinks (0 point) How often did you have 6 or more drinks on one occasion in the past year? 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 anti-inflammatori es (NSAID) (Z79.1) Active confirmed Problem 658565665 Encounter for other preprocedural examination (Z01.818) Active confirmed Problem Diverticulosis of colon (734464125) Diverticulosis of colon (K57.30) Active confirmed Plan Of Treatment Future Test Test Name Order Date COLONOSCOPY 05/05/2022 Insurance Providers Payer Name Payer Address Payer Phone Subscriber Number Group Number Insured Name Patient Relationship to Insured Coverage Start Date Coverage End Date [employer] [address] [place] [address] [id number] LUIS DANIEL MCGOWAN Self - patient is the insured Medical (General) History Medical History History ICD Code Hypertension Hypothyroidism Surgical History Surgery Date(Month/Year) hysterectomy 1997 bunions on both feet 1993 gall bladder 1982
[2025-01-25 08:13] VITALS: BP 160/78; PULSE 73; RESP 16; TEMP 36.6; O2SAT 95; BMI 32.3
[2025-01-25 08:33] VITALS: BP 132/82
== END 2025-01-25 08:47 | disposition home or self-care (01) ==
LOC: HO.HMCHD 08:07
PROVIDERS: PCP Internal Medicine; Visit Provider Physician Assistant
DX: M70.61 Trochanteric bursitis, right hip (principal); E03.9 Hypothyroidism, unspecified; I10 Essential (primary) hypertension; G47.00 Insomnia, unspecified

== ENCOUNTER 2025-01-25 08:06 | Outpatient (REF) | payer MEDICARE, SELFPAY ==
--- NOTE | ~2025-01-25 | XR_ITS ---
CLINICAL HISTORY: M25.551 - Pain in right hip 3 view, pelvis and right hip Comparison: None Findings: No fracture or malalignment. Moderate degenerative changes at both femoral-acetabular joints. The soft tissues are unremarkable. IMPRESSION: No acute findings. Moderate degenerative changes. This document has been electronically signed by: Kai Shaw MD on 01/26/2025 06:01:28
== END 2025-01-25 08:07 | disposition home or self-care (01) ==
LOC: HO.XRAY 08:06
PROVIDERS: PCP Internal Medicine; Visit Provider Physician Assistant
DX: M70.61 Trochanteric bursitis, right hip (principal); E03.9 Hypothyroidism, unspecified; I10 Essential (primary) hypertension; G47.00 Insomnia, unspecified
CPT/HCPCS: 73502; 99202

== ENCOUNTER 2025-01-25 08:53 | Outpatient (REF) | payer MEDICARE, SELFPAY ==
[2025-01-25 09:58] LABS: MANUAL DIFF FLAG NO
[2025-01-25 10:37] LABS: Basophils Percent Auto 0.7 % (0-2); Eosinophils Absolute Auto 0.3 X10*3/uL (0.0-0.4); Eosinophils Percent Auto 4.1 % (0-4); Hematocrit 44.7 % (37.0-47.0); Hemoglobin 14.9 g/dl (12.0-16.0); Imm Gran Abs Auto 0.02 X10*3/uL (0.00-0.03); Imm Gran Pct Auto 0.3 % (0.0-0.4); Lymphocytes Absolute Auto 0.9 X10*3/uL (1.2-4.9); Lymphocytes Percent Auto 15.3 % (20-40); Mean Corpuscular HGB Conc 33.3 g/dl (31.0-35.0); Mean Corpuscular Hemoglobin 32.3 pg (27.0-33.0); Mean Corpuscular Volume 96.8 fL (80.0-98.0); Mean Platelet Volume 11.2 fL (9.4-12.3); Monocytes Absolute Auto 0.5 X10*3/uL (0.1-1.2); Monocytes Percent Auto 8.3 % (2-11); Neutrophils Absolute Auto 4.3 x10*3/uL (2.0-8.3); Neutrophils Percent Auto 71.3 % (45-73); Platelet Count 213 X10*3/uL (160-400); Red Blood Count 4.62 X10*6/uL (4.20-5.50); Red Cell Distribution Width 12.3 % (11.0-16.0)
[2025-01-25 10:38] LABS: Anion Gap 10 (12-20); Blood Urea Nitrogen 13 mg/dL (9-16); Calcium 9.6 mg/dL (8.4-10.2); Carbon Dioxide 33 mmol/L (22-29); Chloride 100 mmol/L (96-108); Cholesterol 204 mg/dL (<200); Estimated Average Glucose 117 mg/dL; Estimated Glomerular Filt Rate > 60; Glucose Random 112 mg/dL (60-115); HDL Cholesterol 56 mg/dL (>40); Hemoglobin A1C 148.0437 umol/L; Hemoglobin A1c % 5.7 % (<6.0); LDL Cholesterol Calculated 104 mg/dL (<100); Potassium 4.1 mmol/L (3.3-5.1); Sodium 139 mmol/L (135-145); Triglycerides 221 mg/dL (<150)
[2025-01-25 10:55] LABS: TSH reflex Free T4 3.19 uIU/mL (0.32-4.0)
== END 2025-01-25 08:54 | disposition home or self-care (01) ==
LOC: HO.10HDL 08:53
PROVIDERS: Visit Provider Physician Assistant
DX: M70.61 Trochanteric bursitis, right hip (principal); E03.9 Hypothyroidism, unspecified; I10 Essential (primary) hypertension; G47.00 Insomnia, unspecified; M70.71 Other bursitis of hip, right hip
CPT/HCPCS: 36415; 73502; 80048; 80061; 83036; 84443; 85025; 96127; 99202

== ENCOUNTER → 2025-01-25 09:06 | Outpatient (BNV) | payer MEDICARE, SELFPAY | PROVIDERS: PCP Internal Medicine; Visit Provider Radiology Vascular & Interventional Radiology | DX: M16.11 Unilateral primary osteoarthritis, right hip (principal) | CPT/HCPCS: 73502 ==

== ENCOUNTER 2025-07-24 07:47 | Outpatient (AMB) | payer MEDICARE, SELFPAY ==
--- NOTE | 2025-07-24 07:49 | A.OFFPC_ITS ---
Vital Signs 07/24/25 07:55 Height 5 ft 5 in Weight 87.09 kg BMI 31.9 BP 120/66 Respiration 12 Pulse 70 Pulse Source Pulse Oximeter Temp 97.5 F Temp Source Temporal Artery Scan Pulse Oximetry (%) 95 Oxygen Delivery Method Room Air Intake Visit Reasons: 6 month f/u - see comments Geomagnetist Required: No Accompanied by: Self / Same As Patient Allergies codeine (Codeine) Allergy (Intermediate, Verified 07/24/25 07:54) HIVES/N/V Iodinated Contrast Media (IV Contrast Dye) Allergy (Unknown, Verified 07/24/25 0 7:54) Unknown Tobacco use date assessed: 07/24/25 Fall risk assessment: No Falls in past year Last assessed Fall Risk: 07/24/25 Dental Screening Dental Screen Date: 07/24/25 Did you have a dental visit in the last 12 months?: Yes Did you have a dental problem in the last 6 months where you did not have access to dental care?: No Was dental information given to patient?: Patient has dentist HPI HPI Comments History of Present Illness Details 69-year-old female with history of hypot hyroidism, hypertension presents to the office today for management of chronic conditions, evaluation of right hip pain presenting for follow up. Hypertension-initially elevated but controlled on recheck 120/66. Compliant with losartan 50 mg nightly. Hypothyroidism-due for thyroid labs. Compliant with levothyroxine 75 mcg daily Obesity-golfing for exercise. Healthy diet Insomnia- longstanding. Using trazodone prn Concerns: Reporting pain on the lateral aspect of the right hip ongoing for about several month. Still with sciatica with lumbar back pain. Aching at night. No weakness. Has done PT. Headache with sinus pressure Health maintenance: Last mammogram 04/2024, no evidence of malignancy. One year follow-up advised= scheduled 08/2025 Last colonoscopy-05/2022. Five year recall due to fragments of sessile serrated polyp and tubular adenoma but negative for high-grade dysplasia or malignancy. Dr. Nunez Last DEXA scan- 04/2024. Normal. 5 year follow up ROS: General: No fevers, malaise, unintentional weight loss HEENT: No blurred vision, diplopia. No sore throat, nasal congestion, rhinorrhea, sinus pain, ear pain Cardiovascular: No chest pain, palpitations, or leg edema Respiratory: No shortness of breath, wheezing, cough MSK: see hpi Neuro: No headaches, weakness, paresthesias Skin: No rashes or lesions EXAM: Constitutional - Awake and Alert, No apparent distress Eyes - PERRLA, EOMI Cardiovascular - S1S2, RRR, No edema Respiratory - Normal lung expansion, Normal respiratory effort, No respiratory distress, CTA bilaterally Extremities - no calf tenderness bilaterally, no swelling Skin - Warm/Dry Neurological - Alert & oriented x3 Psychological - Appropriate affect [facility] Medical History (Updated 01/25/25 @ 09:04 by JIAN Mooney) Lumbar radiculopathy, right Fracture of greater tuberosity of right humerus Bursitis of right hip Hypothyroid HTN (hypertension) Surgical History (Updated 01/25/25 @ 09:04 by JIAN Mooney) H/O colonoscopy (~05/27/22) Hx of cholecystectomy History of bunionectomy Hx of hysterectomy Social History (Updated 12/31/23 @ 09:17 by Nigel Hilario) Household Members: Spouse Housing: House Alcohol intake: current Alcohol intake frequency: holidays/special occasions only Patient Tobacco Use Status: Former Tobacco user e-Cigarette/Vaping Use: Never Used service: No Current occupational status: retired Cognitive needs: No Hearing needs: No Vision needs: Yes (Rx glasses) Questionnaire PHQ-9 Over the last 2 weeks, how often have you been bothered by any of the following problems? 1. Little interest or pleasure in doing things: not at all 2. Feeling down, depressed, or hopeless: not at all 3. Trouble falling or staying asleep, or sleeping too much: not at all 4. Feeling tired or having little energy: not at all 5. Poor appetite or overeating: not at all 6. Feeling bad about yourself - or that you are a failure or have let yourself or your family down: not at all 7. Trouble concentrating on things, such as reading the newspaper or watching television: not at all 8. Moving or speaking so slowly that other people could have noticed. Or the opposite - being so fidgety or restless that you have been moving around a lot more than usual: not at all 9. Thoughts that you would be better off or of hurting yourself in some way: not at all Total score: 0 Depression Screening Interpretation: Negative Depression Screening Done: Yes 44152 - PHQ-9 Billing: Yes Source: Developed by Drs. Quentin Akins, Kyle Almazan and colleagues, with an educational brittany from [employer]. Thrive Questionnaire Date Thrive assessed: 01/25/25 AUDIT C Alcohol Use Questionnaire (AUDIT-C) 2. How many drinks containing alcohol do you have on a typical day when you are drinking?: 1 or 2 3. How often do you have six or more drinks on one occasion?: Never Total Score: 0 ABDIRIZAK-7 AMB Questionnaire ABDIRIZAK-7 Date ABDIRIZAK - 7 assessed: 01/25/25 Feeling nervous, anxious, or on edge: 0 = Not at all Not being able to stop or control worryin = Not at all Worrying too much about different things: 0 = Not at all Trouble relaxin = Not at all Being so restless that it is hard to sit still: 0 = Not at all Becoming easily annoyed or irritable: 0 = Not at all Feeling afraid as if something awful might happen: 0 = Not at all Total ABDIRIZAK-7 score (0-4 normal; 5-9 mild; 10-14 moderate; 15-21 severe): 0 Source: Developed by Drs. Quentin Akins, Kyle Almazan and colleagues, with an educational brittany from [employer]. ABDIRIZAK-7 Assessment Billing ABDIRIZAK-7 Assessment Tool: ABDIRIZAK-7 Assessment 83190 Physical exam (Primary Care) Vital Signs: Last Vital Signs Temp 97.5 F 07/24/25 07:55 Pulse 70 07/24/25 07:55 Resp 12 07/24/25 07:55 BP 120/66 07/24/25 07:55 Pulse Ox 95 07/24/25 07:55 Oxygen Delivery Method Room Air 07/24/25 07:55 BMI result Body Mass Index 31.9 Tobacco/Smoking Status: Tobacco use Status Tobacco use date assessed 07/24/25 07/24/25 07:52 Patient Tobacco Use Status Former Tobacco user 07/24/25 07:52 e-Cigarette/Vaping Use Never Used 07/24/25 07:58 Depression Screening Interpretation: Negative Thrive Assessment: Date of Thrive Assessment Date Thrive assessed 01/25/25 07/24/25 07:52 Coding Level of Care Code Est Pt Level 4 (39164) Complex visit Add On G2211 Diagnoses Hypothyroid E03.9 HTN (hypertension) I10 Insomnia G47.00 Right hip pain M25.551 Additional Codes ABDIRIZAK-7 Assessment Billing - ABDIRIZAK-7 Assessment Tool: ABDIRIZAK-7 Assessment 27941 ([id number]) PHQ-9 - 05776 - PHQ-9 Billing: Yes ([id number]) Assessment & Plan Assessment & Plan (1) Hypothyroid: Code(s): E03.9 - Hypothyroidism, unspecified Category: Medical Plan: TSH with reflex free T4 ordered. Continue levothyroxine (2) HTN (hypertension): Code(s): I10 - Essential (primary) hypertension Category: Medical Plan: Controlled. Continue losartan (3) Insomnia: Code(s): G47.00 - Insomnia, unspecified Category: Medical Plan: Continue trazodone prn (4) Right hip pain: Code(s): M25.551 - Pain in right hip Category: Medical Plan: Continue naproxen prn. Plan Follow-up in the office in 6 months. Orders: Orders Lipid Panel 6 Months E03.9 - Hypothyroidism, unspecified, I10 - Essential (primary) hypertension Basic Metabolic Panel 6 Months E03.9 - Hypothyroidism, unspecified, I10 - Essential (primary) hypertension Liver Panel 6 Months E03.9 - Hypothyroidism, unspecified, I10 - Essential (primary) hypertension
--- OUTSIDE RECORDS SUMMARY | 2025-07-24 07:52 | XMS_ITS | Clinical Summary ---
Author Organization [facility] Address [address] [place] [id number] Phone Care Team Providers Care Garden Tractor Mechanic Name Role Phone Bin Hurst MD Primary Care Provider Allergies No known active allergies Medications SYNTHROID 75 mcg tablet 2 Active losartan (COZAAR) 50 MG tablet 2 Active naproxen (NAPROSYN) 500 MG tablet Take 1 tablet (500 mg total) by mouth 2 (two) times a day. Then twice daily as needed for pain, inflammation 20 tablet 2 Active Active Problems No known active problems Social History Tobacco Use Types Packs/Day Years Used Date Smoking Tobacco: Former Smokeless Tobacco: Never Education Answer Date Recorded Are you interested in more education? Not on tono e 12/13/2022 Are you concerned about learning? Not on file 12/13/2022 No 12/13/2022 No 12/13/2022 Digital Access Answer Date Recorded No 01/11/2023 No 01/11/2023 No 01/11/2023 Reliable internet access at home? Not on file 01/11/2023 Device with a working camera? Not on file Comments Unknown Sex and Gender Information Value Date Recorded Sex Assigned at Not on file Legal Sex Female 6:01 PM EDT Gender Identity Not on file Sexual Orientation Not on file Last Filed Vital Signs Vital Sign Reading Time Taken Comments Blood Pressure 160/93 11/22/2021 6:37 PM EDT Pulse 76 11/22/2021 6:37 PM EDT Temperature 37.1 C (98.8 F) 11/22/2021 6:37 PM EDT Respiratory Rate 18 11/22/2021 6:37 PM EDT Oxygen Saturation 96% 11/22/2021 6:37 PM EDT Inhaled Oxygen Concentration - - Weight 83.5 kg (184 lb) 11/22/2021 6:37 PM EDT Height 165.1 cm (5' 5 ) 11/22/2021 6:37 PM EDT Body Mass Index 30.62 11/22/2021 6:37 PM EDT Plan of Treatment Health Maintenance Due Date Last Done Comments Adult Td,Tdap Booster 1955 CREATININE LEVEL 1955 LIPID PANEL 1955 POTASSIUM LEVEL 1955 TSH LEVEL 1955 DEPRESSION SCREENING 1967 SMOKING Hx and SMOKELESS TOBACCO SCREENING 1968 HEPATITIS C SCREENING 1973 MAMMOGRAM 1995 COLOGUARD 2000 COLONOSCOPY 2000 COLORECTAL CANCER SCREENING 2000 FIT TEST 2000 FOBT 2000 SIGMOIDOSCOPY 2000 VIRTUAL COLONOSCOPY 2000 PNEUMOCOCCAL VACCINES (50+ years) (1 of 1 - PCV) 2005 ZOSTER VACCINES (1 of 2) 2005 OSTEOPOROSIS SCREENING INITIAL (ONE-TIME) 2020 INFLUENZA VACCINE (#1) 2025 , 05/12/2019, 05/13/2018, Additional history exists COVID-19 VACCINE ( season) 2025 05/16/2021, 10/23/2020, 10/02/2020 RSV VACCINE (1 - 1-dose 75+ series) 2030 HEPATITIS A VACCINES Aged Out No long er eligible based on patient's age to complete this topic HIB VACCINES Aged Out No longer eligi ble based on patient's age to complete this topic MENINGOCOCCAL VACCINES (ACWY) Aged Out No longer eligible based on patient's age to complete this topic MENINGOCOCCAL VACCINES (B) Aged Out N o longer eligible based on patient's age to complete this topic Medical Devices Not on file Insurance [facility] [email or web address]] MEDICARE HMO BLUE [place] [address] [id number] MEDICARE [address] [address] [id number] MEDICARE [address] [address] [id number] MEDICARE HMO [place] [place] [id number] MEDICARE HMO [place] [place] [id number] MEDICARE HMO BLUE REPLACEMENT [facility] [email or web address]] MEDICARE HMO BL[place]AC[place] MED[place] BL[place] BL[place] RE[place]ACEMENT Care Teams Garden Tractor Mechanic Relationship Specialty Start Date End Date Bin Hurst MD [address] [place] [address] [place] [address] PCP - General Internal Medicine 11/22/21 Additional Source Comments The information contained in this document represents components of the legal health record. It is not the complete legal health record.[facility]
--- OUTSIDE RECORDS SUMMARY | 2025-07-24 07:53 | XMS_ITS | Patient Health Record ---
Author Organization [facility] Address [address] [place] [address] Care Team Providers Care Glass Inserter Name Role Phone Natali (RETIRED) Bin RICHARDS Primary Care Provide r Unavailable Angel Nunez Jr Unavailable Allergies No Known Allergies Reason For Referral No Information Medications Medication SIG (Take, Route, Frequency, Duration) Notes Start Date End Date Status MiraLax (colon prep) 17 GM/SCOOP Powder mixed with Gatorade or Crystal Light Orally begin at 5:00 p.m. the day before the procedure; Duration: 1 day 05/05/2022 Active Levothyroxine Sodium 75 MCG Tablet 1 tablet in the morning on an empty stomach Orally Once a day; Duration: 30 day(s) Active Losartan Potassium 50 MG Tablet 1 tablet Orally Once a day; Duration: 30 day(s) Active Advil 200 MG Tablet 1 tablet with food o r milk as needed Orally Three times a day Active Immunizations Vaccine Route Administration Date Status Comme nts Influenza Unknown 07/02/2021 Administered Social History Tobacco Use: Social History Observation Description Date Details (start date - stop date) Never Smoker NA - NA Social History Drugs/Alcohol: Social Info Question Answer Notes Alcohol Screen Did you have a drink containing alcohol in the past year? Yes How often did you have a drink containing alcohol in the past year? 4 or more times a week (4 points) How many drinks did you have on a typical day when you were drinking in the past year? 1 or 2 drinks (0 point) How often did you have 6 or more drinks on one occasion in the past year? 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) use of non-steroidal anti-inflammatori es (NSAID) (Z79.1) Active confirmed Problem Pre-procedure evaluation check (677137380) Encounter for other preprocedural examination (Z01.818) Active confirmed Problem Diverticulosis of colon (164388004) Diverticulosis of colon (K57.30) Active confirmed Plan Of Treatment Future Test Test Name Order Date COLONOSCOPY 05/05/2022 Insurance Providers Payer Name Payer Address Payer Phone Subscriber Number Group Number Insured Name Patient Relationship to Insured Coverage Start Date [facility]age End Date [facility] [address] [place] [address] [id number] LUIS DANIEL MCGOWAN Self - patient is the insured Medical (General) History Medical History History ICD Code Hypertension Hypothyroidism Surgical History Surgery Date(Month/Year) hysterectomy 1997 bunions on both feet 1993 gall bladder 1982
--- OUTSIDE RECORDS SUMMARY | 2025-07-24 07:53 | XMS_ITS | Patient Health Record ---
[facility] Address [address] [place] [address] Care Team Providers Care Natural Remedy Consultant Name Role Phone Bin Hurst MD Primary Care Provider Anna Romero Unavailable [phone] Allergies Allergen (clinical drug ingredient) Drug/Non Drug Allergy documented on EMR Reaction Allergy Type Onset Date Status codeine Codeine Sulfate stomach upset Drug Allergy Active Reason For Referral No Information Medications Medication SIG (Take, Route, Frequency, Duration) Notes Start Date End Date Status Losartan Potassium 50 MG Orally Active Levothyroxine Sodium Active Social History Tobacco Use: Social History Observation Description Date Details (start date - stop date) Former Smoker NA - NA Tobacco Use/Smoking Question Answer Notes Are you a: former smoker Additional Findings: Tobacco Non-User Current no n-smoker Alcohol Screen Question Answer Notes Did you have a drink containing alcohol in the p ast year? Yes Points 0 Interpretation Negative Tobacco use other than smoking: Question Answer Notes Are you an other tobacco user? No Problems Problem Type SNOMED Code ICD Code Onset Dates Problem Status W/U Status Risk Notes Problem Localized, primary osteoarthritis of the ankle and/or foot (198362645) Osteoarthritis of left ankle and foot (M19.072) Active confirmed Problem Acquired hammer toe of left foot (8752128199161199 ) Hammertoe of left foot (M20.42) Active confirmed Plan Of Treatment Pending Test Test Name Order Date X ray : Foot, left 3V 01/18/2019 [id number], [id number]/INJECT, JOINT/BURSA 0 01/18/2019 Insurance Providers Payer Name Payer Address Payer Phone Subscriber Number Group Number Insured Name Patient Relationship to Insured Coverage Start Date Coverage End Date [facility] [address] [facility] [place], [place] [address] [phone] [id number] Rose Bryant Self - patient is the insured Medical (General) History Medical History History ICD Code High blood pressure Psoriasis/eczema thyroid Surgical History Surgery Date(Month/Year) bunionectomy- Left 1999 gall bladder 1982 hysterectomy 1997 bunionectomy-right 2001
[2025-07-24 07:55] VITALS: BP 120/66; PULSE 70; RESP 12; TEMP 36.4; O2SAT 95; BMI 31.9
== END 2025-07-24 08:20 | disposition home or self-care (01) ==
LOC: HO.HMCHD 07:48
PROVIDERS: PCP Physician Assistant; Visit Provider Physician Assistant
DX: E03.9 Hypothyroidism, unspecified (principal); I10 Essential (primary) hypertension; G47.00 Insomnia, unspecified; M25.551 Pain in right hip

== ENCOUNTER → 2025-07-24 07:47 | Outpatient (BNVA) | payer MEDICARE, SELFPAY | PROVIDERS: PCP Physician Assistant; Visit Provider Physician Assistant | DX: E03.9 Hypothyroidism, unspecified (principal); I10 Essential (primary) hypertension; G47.00 Insomnia, unspecified; M25.551 Pain in right hip | CPT/HCPCS: 36415; 80048; 80076; 84443; 96127; 99212 ==

== ENCOUNTER 2025-07-24 08:25 | Outpatient (REF) | payer MEDICARE, SELFPAY ==
[2025-07-24 11:58] LABS: Alanine Aminotransferase 30 U/L (0-31); Albumin Level 4.5 g/dL (3.5-5.0); Alkaline Phosphatase 78 U/L (39-117); Anion Gap 10 (12-20); Aspartate Amino Transferase 26 U/L (5-31); Blood Urea Nitrogen 14 mg/dL (9-16); Calcium 9.5 mg/dL (8.4-10.2); Carbon Dioxide 33 mmol/L (22-29); Chloride 104 mmol/L (96-108); Estimated Glomerular Filt Rate > 60; Potassium 3.9 mmol/L (3.3-5.1); Sodium 143 mmol/L (135-145); Total Protein 7.4 g/dL (6.5-8.0)
== END 2025-07-24 08:26 | disposition home or self-care (01) ==
LOC: HO.10HDL 08:25
PROVIDERS: Visit Provider Physician Assistant
DX: I10 Essential (primary) hypertension (principal); R79.89 Other specified abnormal findings of blood chemistry; E03.9 Hypothyroidism, unspecified
CPT/HCPCS: 36415; 80048; 80076; 84443